=== PATIENT | female | born 1985 | race Caucasian/White ===

== ENCOUNTER → 2019-12-11 14:24 | Outpatient (BNVA) | payer SELFPAY | PROVIDERS: Family Provider Nurse Practitioner Family; PCP Nurse Practitioner Family; Visit Provider Family Medicine | DX: N91.2 Amenorrhea, unspecified (principal) | CPT/HCPCS: 81025; 84702 ==

== ENCOUNTER → 2019-12-30 11:07 | Outpatient (BNVA) | payer SELFPAY | PROVIDERS: Family Provider Nurse Practitioner Family; PCP Nurse Practitioner Family; Visit Provider Nurse Practitioner Women's Health | DX: N91.2 Amenorrhea, unspecified (principal); N92.6 Irregular menstruation, unspecified | CPT/HCPCS: 81025; 84146; 84443; 84702 ==

== ENCOUNTER → 2020-12-28 14:23 | Outpatient (BNVA) | payer SELFPAY | PROVIDERS: Family Provider Nurse Practitioner Family; PCP Nurse Practitioner Family; Visit Provider Nurse Practitioner Women's Health | DX: N97.9 Female infertility, unspecified (principal); F41.9 Anxiety disorder, unspecified | CPT/HCPCS: 82306; 83036; 83520 ==

== ENCOUNTER → 2022-04-17 12:47 | Outpatient (BNVA) | payer OTHER, SELFPAY | PROVIDERS: Family Provider Nurse Practitioner Family; PCP Nurse Practitioner Family; Visit Provider Family Medicine | DX: R73.03 Prediabetes (principal) | CPT/HCPCS: 80053; 80061; 83036; 84443; 85025 ==

== ENCOUNTER → 2023-06-28 12:06 | Outpatient (BNVA) | payer OTHER, SELFPAY | PROVIDERS: Family Provider Nurse Practitioner Family; PCP Family Medicine; Visit Provider Family Medicine | DX: N91.2 Amenorrhea, unspecified (principal); N92.6 Irregular menstruation, unspecified | CPT/HCPCS: 84702 ==

== ENCOUNTER 2023-10-09 09:12 | Day surgery (SDC) | payer OTHER, SELFPAY ==
[2023-10-09] VITALS (12 sets, daily range): BP systolic 105–125; BP diastolic 66–77; PULSE 61–89; RESP 14–24; TEMP 36.3–36.6; O2SAT 98–100; BMI 26.6
[2023-10-09 09:53] LABS: OR HCG Qualitative Urine Negative (Negative)
[2023-10-09] MEDS: sodium chloride 0.9% 1,000 ML 30 ML IV (10:02)
[2023-10-09] MEDS: midazolam 1 mg/mL INJ 2 mL 2 MG IVP (11:43)
--- NOTE | 2023-10-09 12:09 | W.PM.OPSUD ---
Surgery/Procedure H&P Update DATE OF PROCEDURE: October 09, 2023 DATE H&P PERFORMED: 09/17/23 PRIMARY INDICATION FOR PROCEDURE: Conductive Hearing Loss, Right Ear PLANNED PROCEDURE: Operation Date: 10/09/23 11:00 Proposed Procedures p Baha Implants(Right) - Saad Mcghee MD
--- NOTE | 2023-10-09 12:43 | ANES.PREANE2 ---
Pre-Anesthetic Assessment Height/Weight: Height 1.73 m Weight 79.379 kg Temp Pulse Resp BP Pulse Ox O2 Del Method 97.3 F L 84 14 125/75 98 Room Air 10/09/23 09:45 10/09/23 11:49 10/09/23 11:49 10/09/23 09:45 10/09/23 11:49 10/09/23 11:49 Operation Date: 10/09/23 11:00 Proposed Procedures p Baha Implants(Right) - Saad Mcghee MD Familial anesthetic complications: None Was Beta Tamera taken within 24 hours: N/A Was Clonidine taken within 24 hours: N/A Last intake: Intake Last Liquid Date 10/08/23 Last Liquid Time 20:30 Last Solid Date 10/08/23 Last Solid Time 20:30 Social No alcohol and No tobacco Exam alert, oriented x 3, clear to auscultation bilaterally and regular rate & rhythm Airway Mallampati: Class I Dentition: full Anesthetic Plan ASA status: 1 Anesthesia: General Risk of > 500 ml blood loss (7ml/kg in children): No Medications/Allergies Home Medications Medication Instructions Recorded Confirmed Last Taken Type tirzepatide (weight loss) 7.5 7.5 mg SUBCUT .WKLY 10/08/23 10/08/23 09/25/23 History mg/0.5 mL subcutaneous pen injector (Zepbound) Allergies Allergy/AdvReac Type Severity Reaction Status Date / Time No Known Allergies Allergy Verified 02/20/23 15:04 Current Medications Generic Name Dose Route Start Last Admin Trade Name Freq PRN Reason Stop Dose Admin Sodium Chloride 1,000 mls @ 30 mls/hr 10/09/23 09:30 10/09/23 10:02 Sodium Chloride 0.9% IV 10/10/23 09:29 30 mls/hr .Q24H SAE Administration Midazolam HCl 2 mg 10/09/23 09:30 10/09/23 11:43 Midazolam 1 Mg/Ml Inj 2 Ml IVP 2 mg Q5M PRN Administration Preop Anxiety PFSH Anesthesia Medical History No pertinent past medical history neghx: htn,dm,thyroid,dvt/pe Surgical History History of tonsillectomy History of post-sterilization tuboplasty (~2018) left tube only--- [facility] Dr. Corbett; no hsg to confirm patency. H/O tubal ligation (2010) Family History Brother Heart disease Mother Family history of thyroid problem Diabetes Father Diabetes Hypertension Grandmother Stroke Paternal grandmother Denies family history of Colon cancer Ovarian cancer Hyperlipidemia Breast cancer Uterine cancer Female Reproductive History Date of last menstrual period: 10/03/23 Data Anesthesia Cardiac Studies: No Data to Display
[2023-10-09] MEDS: ceFAZolin 2,000 MG in sodium chloride 0.9% (plus) 50 ML 100 MG IV (13:18)
[2023-10-09] MEDS: lidocaine-epi 1% 20 mL INJ INJECTION (13:57)
[2023-10-09] MEDS: neomycin-poly-bacitracin oint 28 gm 1 APPLIC TOPICAL (13:57)
--- NOTE | 2023-10-09 14:13 | P.OP_ITS ---
Operative Report Date of procedure: October 09, 2023 Pre-op diagnosis: Mixed Hearing Loss, Right Ear Post-op diagnosis: same Post-op findings: Normal right ear exam Procedure done: Right Bone Anchored Hearing Aid Placement Implants: Right Bone Anchored Hearing Aid Specimens removed/disposition: None Pathology: none sent Surgeon: Saad Mcghee Surgeon: Saad Mcghee MD Activities Coordinator: Matias Cervantes Anesthesia: General Estimated blood loss (mL): 5 IV fluids (mL): 750 Complications: None Findings: Normal right post auricular exam Condition: stable Disposition: PACU Brief History: 38 yo wf with a h/o severe mixed hearing loss, right ear Procedure: The patient was identified in the preop holding area and was taken to the operating where she was placed on the operating table in the supine position. Anesthesia was obtained with general anesthesia and the table was then turned 180 degrees. The patient's head was turned to the left exposing the right ear to the operating surgeon. The incision was marked out 50mm posterior to the right external auditory canal. The incision was marked out in the appropriate place using the surgical indicator. The depth of the skin in the area was measured with a needle and hemostat and a 12 mm implant was selected. The incision was then injected with local anesthesia after prepping and draping the patient in the usual sterile fashion and 10 minutes were allowed to pass. A 5 mm punch biopsy tool was used to make the incision at the previously marked out incision site. Hemostasis was achieved electrocautery and the incision was carried down to the mastoid cortex. The bone was cleaned of the extraneous overlying periosteum. At this point, under direct vision, using the microscope, the drill cannula was placed on the bone and the 3 mm dispatcher ship pilot drill bit was used to make a dispatcher ship pilot hole to a depth of 3 mm. The bone was checked for adequacy in the deep portion of the dispatcher ship pilot hole and was found to be adequate. At this point 4 mm dispatcher ship pilot hole was used to extend this dispatcher ship pilot hole to 4 mm and again the patient was found to have solid bone at the and the depth of the dispatcher ship pilot hole. At this point, the countersink drill bit was used to enlarge the dispatcher ship pilot hole down to 4 mm. The torque limited drill was then used to place the bone-anchored hearing aid fixture mount into the into the hole in the right mastoid cortex. Once the fixture mount was in the proper position a sterile dressing and triple antibiotic ointment were placed on the wound and were secured in place with a healing cap. At this point the procedure was terminated and control of the patient was returned to anesthesia where she underwent an uneventful reversal of anesthesia and was taken to the recovery room in stable condition. There were no operative or anesthetic complications.
--- NOTE | 2023-10-09 14:45 | ANE.PACU2 ---
Inpatient post-anesthesia follow up: Airway intact: Yes Vital signs: Temperature 97.7 F Pulse Rate 89 Respiratory Rate 18 Blood Pressure 105/75 Pulse Oximetry 99 Oxygen Delivery Me thod Room Air Oxygen Flow Rate 6 Fraction of Inspir ed Oxygen Hydration adequate: Yes Nausea and vomiting: No Pain level: 1 Mental status: Baseline
[2023-10-09] MEDS: HYDROcodone-acetaminophen 5-325 mg Tablet 1 TAB PO (15:07)
== END 2023-10-09 15:43 | disposition home or self-care (01) ==
PROVIDERS: Family Provider Nurse Practitioner Family; PCP Family Medicine; Visit Provider Specialist
PROC: (CPT 69710; principal; 2023-10-09 10:50)
DX: H90.71 Mixed conductive and sensorineural hearing loss, unilateral, right ear, with unrestricted hearing on the contralateral side (principal)
CPT/HCPCS: 69710; 69714; 81025; J0690; J1100; J2250; J2405; J2704; J3010; J7030; L8690